=== PATIENT | female | born 1985 | race Caucasian/White ===

== ENCOUNTER 2017-08-30 18:56 | Emergency (ER) | payer MEDICAID ==
[~2017-08-30] VITALS: Ht 160 cm; Wt 66.7 kg
[2017-08-30 19:05] VITALS: BP 103/49
[2017-08-30 19:15] VITALS: BP 103/49
[2017-08-30] MEDS ORDERED: IBUPROFEN 600 MG TAB PO ONE (20:10)
== END 2017-08-30 22:28 | disposition left against medical advice (07) ==
LOC: MED 18:56
DX: S90.122A Contusion of left lesser toe(s) without damage to nail, initial encounter (principal); X58.XXXA Exposure to other specified factors, initial encounter; Y93.89 Activity, other specified; Y92.89 Other specified places as the place of occurrence of the external cause; Y99.8 Other external cause status
CPT/HCPCS: 99281; 99282

== ENCOUNTER 2018-06-27 14:12 | Emergency (ER) | payer MEDICAID ==
[~2018-06-27] VITALS: Ht 160 cm; Wt 66.3 kg
--- NOTE | 2018-06-27 14:14 | NUR ---
PT BIBA TO BED 10.
[2018-06-27 14:19] VITALS: BP 106/69
--- NOTE | 2018-06-27 14:58 | NUR ---
DR QUIROGA AT BEDSIDE
[2018-06-27] MEDS ORDERED: KETOROLAC 30 MG/ML VIAL IVP ONE (15:00)
--- NOTE | 2018-06-27 15:03 | NUR ---
33 Y FEMALE BIBA C/O FALL AT [facility]. C-SPINE, NO TRAUMA NOTED, -ECCHYMOSIS. DENIES LOC/KO. PAIN ACHING 07/22. PT STATES HER R KNEE/LEG, HIP, LOWER, BACK, AND R SHOULDER ARE IN PAIN. VSS AT THIS TIME. [id number]. CLEAR SPEECH. BED IS DOWN, LOCKED, BED RAIL X 1, ERMD NOTIFIED. HX-NONE
[2018-06-27 16:02] VITALS: BP 110/70
== END 2018-06-27 16:02 | disposition home or self-care (01) ==
LOC: MED 14:12
DX: S40.012A Contusion of left shoulder, initial encounter (principal); S16.1XXA Strain of muscle, fascia and tendon at neck level, initial encounter; R11.0 Nausea; W01.0XXA Fall on same level from slipping, tripping and stumbling without subsequent striking against object, initial encounter; Y93.89 Activity, other specified; Y92.89 Other specified places as the place of occurrence of the external cause; Y99.8 Other external cause status
CPT/HCPCS: 72040; 81002; 81025; 96374; 99283; J1885

== ENCOUNTER 2018-12-12 08:19 | Emergency (ER) | payer MEDICAID ==
[~2018-12-12] VITALS: Ht 160 cm; Wt 69.5 kg
[2018-12-12 08:25] VITALS: BP 120/72
[2018-12-12 09:01] VITALS: BP 115/75
== END 2018-12-12 09:01 | disposition home or self-care (01) ==
LOC: MED 08:19
DX: R07.89 Other chest pain (principal); Z98.890 Other specified postprocedural states
CPT/HCPCS: 71046; 99283

== ENCOUNTER 2019-04-07 08:49 | Emergency (ER) | payer MEDICAID ==
[~2019-04-07] VITALS: Ht 160 cm; Wt 70.8 kg
[2019-04-07 08:54] VITALS: BP 99/61
--- NOTE | 2019-04-07 08:58 | NUR ---
AMB TO BED 03 STEADY GAIT
--- NOTE | 2019-04-07 09:09 | NUR ---
PT C/O STATES LEFT BREAST PAIN, ITCHINESS, ERYTHEMA X 4-5 MONTHS AND WORSENING RECENTLY. ALSO STATES COUGH, DIZZY, AND WEAKNESS X 5 DAYS. INPLANTS PLACED IN BREAST BILATERAL FOR 2 YEARS. DENIES NIPPLE DISCHARGE OR ANY SX OF THE RIGHT BREAT. PATIENT STATES PAIN OF 8/10 AT THIS TIME; VSS; PATIENT POSITIONED FOR COMFORT; HOB ELEVATED; BEDRAILS UP X1; BED DOWN. ER MD MADE AWARE OF PT STATUS.
--- NOTE | 2019-04-07 09:41 | NUR ---
Dr. Willett is evaluating the patient at bedside.
[2019-04-07 09:52] VITALS: BP 101/58
--- NOTE | 2019-04-07 09:52 | NUR ---
Patient discharged with v/s stable. Written and verbal after care instructions given and explained. Patient alert, oriented and verbalized understanding of instructions. Ambulatory with steady gait. All questions addressed prior to discharge. ID band removed. Patient advised to follow up with PMD. Rx of Motrin, Prednisone, and [place] given. Patient educated on indication of medication including possible reaction and side effects. Opportunity to ask questions provided and answered.
== END 2019-04-07 09:52 | disposition home or self-care (01) ==
LOC: MED 08:49
DX: N64.4 Mastodynia (principal); R05 Cough; Z98.890 Other specified postprocedural states
CPT/HCPCS: 99283